=== PATIENT | male | born 1970 | race Caucasian/White ===

== ENCOUNTER → 2017-04-28 | Outpatient (CLI) | payer MEDICAID ==
[~2017-04-28] MED LIST: ASPI-COR81 M1 PO; CITALOPRAM20 MG PO; IBUPROFEN 600M600 MG PO; KEFLEX 500MG.500 MG PO; LIPITOR20 MG PO; LISINOPRIL 10MG10 MG PO; METOPROLOL25 MG PO; PRAVASTATIN 40M40 MG PO; SEPTRA DS 800 M1 TAB PO; VICODIN1 TAB PO
[2017-04-28 14:57] LABS: AEROMONAS NOT DETECTED (NOT DETECTE)
[2017-04-28 14:58] LABS: ASTROVIRUS NOT DETECTED (NOT DETECTE); CYCLOSPORA CAYETANENSIS NOT DETECTED (NOT DETECTE); E COLI O157 NOT DETECTED (NOT DETECTE); ENTEROAGGREGATIVE E COLI NOT DETECTED (NOT DETECTE); ENTEROTOXIGENIC E COLI NOT DETECTED (NOT DETECTE); NOROVIRUS NOT DETECTED (NOT DETECTE); SAPOVIRUS NOT DETECTED (NOT DETECTE); SHIGA-LIKE TOXIN PROD. E COLI NOT DETECTED (NOT DETECTE); SHIGELLA/ENTEROINVASIVE E COLI NOT DETECTED (NOT DETECTE); VIBRIO CHOLERAE NOT DETECTED (NOT DETECTE)
[2017-04-28 17:07] LABS: ENTEROPATHOGENIC E COLI DETECTED (NOT DETECTE)
== END ==
LOC: LAB 14:54
PROVIDERS: Physician Assistant
DX: R19.7 Diarrhea, unspecified (principal)